=== PATIENT | male | born 1975 | race Asian ===

== ENCOUNTER 2020-04-25 14:46 | Emergency (ER) | payer OTHER ==
[~2020-04-25] VITALS: Ht 170.2 cm; Wt 68.0 kg
[2020-04-25] MEDS ORDERED: ACETAMINOPHEN 325 MG TAB PO ONE (15:45)
--- NOTE | 2020-04-25 17:39 | Diagnostic Imaging Report ---
EXAMINATION: CHEST SINGLE (PORTABLE) INDICATION: ^Y ^possible covid ^[id number] ^1611 COMPARISON: None FINDINGS: AP view TUBES and LINES: None. LUNGS: Low lung volumes. Bilateral lower lung field airspace opacities. PLEURA: No significant pleural effusion or pneumothorax. HEART AND MEDIASTINUM: The cardiomediastinal silhouette is prominent on this AP view, accentuated by low lung volumes.. BONES AND SOFT TISSUES: No acute osseous lesion. Soft tissues are unremarkable. UPPER ABDOMEN: No free air under the diaphragm. IMPRESSION: Limited by low lung volumes. Bilateral mild lower lung field airspace opacities, representing atelectasis versus pneumonia in the appropriate clinical context. Signed by: Dr. Kulwant Moctezuma MD on 04/25/2020 5:36 PM
--- NOTE | 2020-04-25 18:25 | Emergency Department Note ---
History of Present Illnes History of Present Illness Chief Complaint: Abdominal Complaints History of Present Illness This is a 45 year old male fever, chills, sullivan, muscle aches, n/v/d x 2 weeks tested neg twice for covid was seen by pcp and given unknown med and unknown shot. 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 Any updates have been documented here. Past Medical History Recent Fever: Yes Clinical Suspicion of Infectio: Yes New/Unexplained Change in Ment: No Past Medical History: None Past Surgical History: None Social History Smoking Cessation: Former smoker Counseling Performed: No Alcohol Use: None Any Illegal Drug Use: No TB Exposure/Symptoms: No Physically hurt or threatened: No Family History Family history of heart diseas: No Other Any Pre-Existing Lines (PICC,: No Review of Systems Review of Systems Constitutional: Reports as per HPI EENTM: Reports no symptoms Cardiovascular: Reports no symptoms Respiratory: Reports as per HPI Gastrointestinal: Reports no symptoms Genitourinary: Reports no symptoms Musculoskeletal: Reports as per HPI Integumentary: Reports no symptoms Neurological: Reports no symptoms Psychological: Reports no symptoms Endocrine: Reports no symptoms Hematological/Lymphatic: Reports no symptoms Physical Exam Related Data Allergies: Coded Allergies: No Known Allergies (Unverified , 04/25/20) Triage Vital Signs Vital Signs Date Time Temp Pulse Resp B/P (MAP) Pulse Ox O2 Delivery O2 Flow Rate FiO2 04/25/20 15:31 102.8 88 18 110/66 97 Room Air Vital signs reviewed: Yes Physical Exam CONSTITUTIONAL Constitutional: Present well-developed, Present well-nourished HENT HENT: Present normocephalic, Present atraumatic, Present oropharynx clear/moist, Present nose normal HENT L/R: Present left ext ear normal, Present right ext ear normal EYES Eyes: Reports PERRL, Reports conjunctivae normal NECK Neck: Present ROM normal PULMONARY Pulmonary: Present effort normal, Present breath sounds normal CARDIOVASCULAR Cardiovascular: Present regular rhythm, Present heart sounds normal, Present capillary refill normal, Present normal rate GASTROINTESTINAL Abdominal: Present soft, Present nontender, Present bowel sounds normal GENITOURINARY Genitourinary: Present exam deferred SKIN Skin: Present warm, Present dry MUSCULOSKELETAL Musculoskeletal: Present ROM normal NEUROLOGICAL Neurological: Present alert, Present oriented x 3, Present no gross motor or sensory deficits PSYCHOLOGICAL Psychological: Present mood/affect normal, Present judgement normal Results Imaging Imaging results reviewed: Yes Impressions Procedure: [id number] DX/CHEST SINGLE (PORTABLE) Exam Date: 04/25/20 Exam Time: 161 REPORT STATUS: Signed EXAMINATION: CHEST SINGLE (PORTABLE) INDICATION: ^Y ^possible covid ^[id number] ^161 COMPARISON: None FINDINGS: AP view TUBES and LINES: None. LUNGS: Low lung volumes. Bilateral lower lung field airspace opacities. PLEURA: No significant pleural effusion or pneumothorax. HEART AND MEDIASTINUM: The cardiomediastinal silhouette is prominent on this AP view, accentuated by low lung volumes.. BONES AND SOFT TISSUES: No acute osseous lesion. Soft tissues are unremarkable. UPPER ABDOMEN: No free air under the diaphragm. IMPRESSION: Limited by low lung volumes. Bilateral mild lower lung field airspace opacities, representing atelectasis versus pneumonia in the appropriate clinical context. Signed by: Dr. Kulwant Moctezuma MD on 04/25/2020 5:36 PM Assessment & Plan Medical Decision Making MDM VIRAL SYNDROME, CHECK CXR R/O PNEUMONIA Reassessment Reassessment DC HOME WITH ZPACK AND MEDROL DOSE ALFREDO Assessment & Plan Final Impression: (1) Bronchitis Depart Disposition: HOME, SELF-CARE Last Vital Signs Date Time Temp Pulse Resp B/P (MAP) Pulse Ox O2 Delivery O2 Flow Rate FiO2 04/25/20 15:31 102.8 88 18 110/66 97 Room Air Medications in the ED Acetaminophen 975 mg ONCE ONCE PO Last administered on 04/25/20at 15:51; Admin Dose 975 MG; Start 04/25/20 at 15:45; Stop 04/25/20 at 16:01; Status DC ANA REDDY MD Apr 25, 2020 18:25
== END 2020-04-25 18:26 | disposition home or self-care (01) ==
LOC: ER 14:46
DX: J40 Bronchitis, not specified as acute or chronic (principal); R50.9 Fever, unspecified; R11.2 Nausea with vomiting, unspecified; R51 Headache
CPT/HCPCS: 71045; 99283

== ENCOUNTER 2021-09-26 14:58 | Emergency (ER) | payer OTHER ==
[~2021-09-26] VITALS: Ht 170.2 cm; Wt 68.0 kg
[2021-09-26] MEDS ORDERED: METHOCARBAMOL750 MG PO (16:36)
[2021-09-26] MEDS ORDERED: NAPROSYN500 MG PO (16:36)
[2021-09-26 16:46] VITALS: BP 141/78
== END 2021-09-26 16:48 | disposition home or self-care (01) ==
LOC: ER 15:08
DX: S16.1XXA Strain of muscle, fascia and tendon at neck level, initial encounter (principal); S39.012A Strain of muscle, fascia and tendon of lower back, initial encounter; V43.52XA Car driver injured in collision with other type car in traffic accident, initial encounter; Y92.488 Other paved roadways as the place of occurrence of the external cause
CPT/HCPCS: 72050; 72110; 99283